=== PATIENT | female | born 1950 | race Caucasian/White ===

== ENCOUNTER 2017-04-05 15:01 | Inpatient (IN) | payer MEDICARE, BC ==
[~2017-04-05] VITALS: Ht 149.9 cm; Wt 69.0 kg
[~2017-04-05 15:01] MED LIST: AMLO10TA2 PO; BENZ-8 PO; CETI10TA16 PO; CRESTOR20 MG PO; ESOM20CA PO; FENO145T2 PO; LEVO25TA55 PO; METF500T4 PO; METR500T8 PO; MONT10TA9 PO; OLME40TA12 PO
[2017-04-05 15:23] VITALS: BP 121/70
[2017-04-05] MEDS ORDERED: ONDANSETRON PF 4 MG/2 ML VIAL. IV PRN (16:00)
[2017-04-05 16:21] LABS: BASO % 1 % (0-3); EOS % 0 % (0-3); HEMATOCRIT 34.9 % (36.0-47.0); HEMOGLOBIN 12.1 g/dL (12.0-15.5); LYMPH # 0.8 x10^3/uL (1.0-4.8); LYMPH % 10 % (24-48); MEAN CORPUSCULAR HEMOGLOBIN 31 pg (25-35); MEAN CORPUSCULAR HGB CONC 35 g/dL (31-37); MEAN CORPUSCULAR VOLUME 91 fL (79-100); MONO # 0.6 x10^3/uL (0.0-1.1); MONO % 7 % (0-9); NEUT # 6.7 x10^3uL (1.8-7.7); NEUT % 82 % (31-73); PLATELET COUNT 232 x10^3/uL (140-400); RED BLOOD COUNT 3.84 x10^6/uL (3.50-5.40); RED CELL DISTRIBUTION WIDTH 13.3 % (11.5-14.5); WHITE BLOOD COUNT 8.2 x10^3/uL (4.0-11.0)
[2017-04-05] MEDS: ACETAMINOPHEN 325 MG TABLET PO PRN (16:30)
[2017-04-05 16:46] LABS: ALBUMIN/GLOBULIN RATIO 1.3 (1.0-1.7); CALCIUM 8.7 mg/dL (8.5-10.1); CREATININE 1.1 mg/dL (0.6-1.0); GFR 49.5; POTASSIUM 4.1 mmol/L (3.5-5.1); TOTAL BILIRUBIN 0.3 mg/dL (0.2-1.0); TOTAL PROTEIN 7.2 g/dL (6.4-8.2)
--- NOTE | 2017-04-05 16:58 | RAD ---
PA and lateral chest radiographs 04/05/2017 Clinical history: Congestion and shortness of breath. PA and lateral digital radiographs of the chest were obtained. No previous studies are available for comparison. The cardiac silhouette is normal in size. The thoracic aorta is mildly tortuous. Mild left basilar subsegmental atelectasis and/ or infiltrate is noted. No pneumothorax or pleural effusion is seen. Degenerative changes are seen involving the thoracic spine. Impression: Mild left basilar subsegmental atelectasis and/or infiltrate.
[2017-04-05] MEDS: IV NORMAL SALINE 1,000ML 1,000 ML IV SCH (18:00)
[2017-04-05 18:06] LABS: INFLUENZA A PATIENT POSITIVE (NEGATIVE); INFLUENZA B PATIENT NEGATIVE (NEGATIVE)
[2017-04-05] MEDS ORDERED: ONDANSETRON ODT 4 MG TAB.RAPDIS PO PRN (18:30)
[2017-04-05] MEDS ORDERED: ESOM40CA PO (18:37)
[2017-04-05 19:31] VITALS: BP 97/55
[2017-04-05] MEDS: LACTOBACILLUS RHAMNOSUS GG 1 CAPSULE. PO SCH (21:16)
[2017-04-05] MEDS: DOXYCYCLINE HYCLATE 100 MG TABLET PO SCH (21:16)
[2017-04-05] MEDS: OSELTAMIVIR 75 MG CAPSULE PO SCH (21:17)
[2017-04-05] MEDS: cefTRIAXone IV Push 1 GM VIAL. IVP SCH (21:28)
[2017-04-05 23:03] VITALS: BP 112/58
[2017-04-05] MEDS: MONTELUKAST 10 MG TABLET. PO SCH (23:12)
[2017-04-05] MEDS: PANTOPRAZOLE 40 MG TABLET. PO SCH (23:12)
[2017-04-05] MEDS: ATORVASTATIN CALCIUM 20 MG TABLET PO SCH (23:12)
[2017-04-06] MEDS: ACETAMINOPHEN 325 MG TABLET PO PRN ×2 (04:59→20:15)
[2017-04-06] MEDS: IV NORMAL SALINE 1,000ML 1,000 ML IV SCH ×3 (05:00→22:56)
[2017-04-06 05:14] VITALS: BP 94/60
[2017-04-06] MEDS: LEVOTHYROXINE 25 MCG TABLET. PO SCH (06:16)
[2017-04-06 06:26] LABS: BASO % 1 % (0-3); EOS % 0 % (0-3); HEMATOCRIT 32.4 % (36.0-47.0); HEMOGLOBIN 11.2 g/dL (12.0-15.5); LYMPH # 1.1 x10^3/uL (1.0-4.8); LYMPH % 19 % (24-48); MEAN CORPUSCULAR HEMOGLOBIN 32 pg (25-35); MEAN CORPUSCULAR HGB CONC 35 g/dL (31-37); MEAN CORPUSCULAR VOLUME 91 fL (79-100); MONO # 0.6 x10^3/uL (0.0-1.1); MONO % 10 % (0-9); NEUT % 70 % (31-73); PLATELET COUNT 194 x10^3/uL (140-400); RED BLOOD COUNT 3.56 x10^6/uL (3.50-5.40); RED CELL DISTRIBUTION WIDTH 13.3 % (11.5-14.5); WHITE BLOOD COUNT 5.7 x10^3/uL (4.0-11.0)
[2017-04-06 06:34] LABS: GFR 55.3; POTASSIUM 3.7 mmol/L (3.5-5.1)
[2017-04-06] MEDS: OSELTAMIVIR 75 MG CAPSULE PO SCH ×2 (08:01→20:15)
[2017-04-06] MEDS: LACTOBACILLUS RHAMNOSUS GG 1 CAPSULE. PO SCH ×2 (08:01→20:16)
[2017-04-06] MEDS: DOXYCYCLINE HYCLATE 100 MG TABLET PO SCH ×2 (08:01→20:16)
[2017-04-06] MEDS: PANTOPRAZOLE 40 MG TABLET. PO SCH ×2 (08:02→20:15)
[2017-04-06] MEDS: metFORMIN 500 MG TABLET PO SCH ×2 (08:02→17:18)
[2017-04-06] MEDS: CETIRIZINE HCL 10 MG TABLET PO SCH (08:02)
[2017-04-06] MEDS: FENOFIBRATE NANOCRYSTALLIZED 145 MG TABLET PO SCH (08:03)
[2017-04-06] MEDS: amLODIPine BESYLATE 10 MG TABLET PO SCH (08:03)
[2017-04-06] MEDS ORDERED: FLU VACC QS2017-18 (36MOS+)/PF 0.5 ML SYRINGE. VAX IM ONE (09:00)
[2017-04-06 10:08] LABS: BACTERIA,URINE FEW /HPF (0-FEW); BILIRUBIN,URINE NEG (NEG); CLARITY,URINE CLEAR; COLOR,URINE YELLOW; GLUCOSE,URINE NEG (NEG); NITRITE,URINE NEG (NEG); SQUAMOUS EPITHELIAL CELL,UR OCC /LPF; UROBILINOGEN,URINE 0.2 mg/dL (0.2 mg/dL)
[2017-04-06 11:02] VITALS: BP 106/73
[2017-04-06] MEDS: PROMETH/CODEINE 6.25/10MG 5 ML SYRUP. PO PRN ×2 (12:32→22:56)
[2017-04-06 16:29] VITALS: BP 119/56
[2017-04-06 19:10] VITALS: BP 131/80
[2017-04-06] MEDS: cefTRIAXone IV Push 1 GM VIAL. IVP SCH (20:15)
[2017-04-06] MEDS: MONTELUKAST 10 MG TABLET. PO SCH (20:15)
[2017-04-06] MEDS: ATORVASTATIN CALCIUM 20 MG TABLET PO SCH (20:16)
[2017-04-06] MEDS: IPRATRPIUM/ALBUTEROL 0.5/2.5MG 3 ML NEBU. NEB SCH (20:33)
[2017-04-06 22:31] VITALS: BP 102/61
[2017-04-07 05:37] VITALS: BP 120/67
[2017-04-07] MEDS: LEVOTHYROXINE 25 MCG TABLET. PO SCH (05:58)
[2017-04-07 06:51] LABS: BASO % 1 % (0-3); EOS # 0.1 x10^3/uL (0.0-0.7); EOS % 2 % (0-3); HEMATOCRIT 30.5 % (36.0-47.0); HEMOGLOBIN 10.5 g/dL (12.0-15.5); LYMPH # 1.4 x10^3/uL (1.0-4.8); LYMPH % 52 % (24-48); MEAN CORPUSCULAR HEMOGLOBIN 32 pg (25-35); MEAN CORPUSCULAR HGB CONC 34 g/dL (31-37); MEAN CORPUSCULAR VOLUME 92 fL (79-100); MONO # 0.2 x10^3/uL (0.0-1.1); MONO % 9 % (0-9); NEUT % 37 % (31-73); PLATELET COUNT 168 x10^3/uL (140-400); RED BLOOD COUNT 3.32 x10^6/uL (3.50-5.40); RED CELL DISTRIBUTION WIDTH 13.3 % (11.5-14.5); WHITE BLOOD COUNT 2.6 x10^3/uL (4.0-11.0)
[2017-04-07 06:58] LABS: CALCIUM 7.7 mg/dL (8.5-10.1); CREATININE 0.9 mg/dL (0.6-1.0); GFR 62.5; POTASSIUM 3.5 mmol/L (3.5-5.1)
[2017-04-07 08:17] LABS: % BANDS 1 % (0-9); % EOS 3 % (0-5); % LYMPHS 45 % (24-48); % MONOS 5 % (0-10); % SEGS 44 % (35-66)
[2017-04-07 08:18] LABS: PLT ESTIMATE ADEQUATE (ADEQUATE); POLYCHROMASIA SLIGHT
[2017-04-07 08:20] LABS: % ATYL 2 % (0-0)
[2017-04-07] MEDS: IPRATRPIUM/ALBUTEROL 0.5/2.5MG 3 ML NEBU. NEB SCH ×2 (09:00→20:38)
[2017-04-07] MEDS: PANTOPRAZOLE 40 MG TABLET. PO SCH ×2 (09:21→20:15)
[2017-04-07] MEDS: LACTOBACILLUS RHAMNOSUS GG 1 CAPSULE. PO SCH ×2 (09:21→20:15)
[2017-04-07] MEDS: FENOFIBRATE NANOCRYSTALLIZED 145 MG TABLET PO SCH (09:21)
[2017-04-07] MEDS: amLODIPine BESYLATE 10 MG TABLET PO SCH (09:21)
[2017-04-07] MEDS: metFORMIN 500 MG TABLET PO SCH ×2 (09:21→17:44)
[2017-04-07] MEDS: DOXYCYCLINE HYCLATE 100 MG TABLET PO SCH ×2 (09:21→20:15)
[2017-04-07] MEDS: OSELTAMIVIR 75 MG CAPSULE PO SCH ×2 (09:21→20:15)
[2017-04-07] MEDS: CETIRIZINE HCL 10 MG TABLET PO SCH (09:21)
--- NOTE | 2017-04-07 10:52 | PN ---
DATE: 04/06/2017 SUBJECTIVE: The patient in with influenza A, doing somewhat better, but still very achy, very uncomfortable as it were. The patient rates her pain approximately about 8-9/10. OBJECTIVE: VITAL SIGNS: The patient's blood pressure 120/60, respiratory rate 20, pulse 70 so sure. Her temperature has come down from 102.8 down to approximately 98. GENERAL: The patient otherwise is alert and oriented, ill appearing. LUNGS: Diminished throughout, poor movement of air. CARDIOVASCULAR: Regular sinus rhythm. ABDOMEN: Soft and nontender. IMPRESSION: Influenza A, dehydration, and complications from influenza with generalized achiness and discomfort. ZACHARIAH STEINER MD DR: KIN/adrienne JOB#: [id number] / [id number]
[2017-04-07] MEDS: IV NORMAL SALINE 1,000ML 1,000 ML IV SCH ×2 (12:00→20:16)
[2017-04-07 15:59] VITALS: BP 119/68
[2017-04-07 19:10] VITALS: BP 119/76
[2017-04-07] MEDS: ACETAMINOPHEN 325 MG TABLET PO PRN (20:15)
[2017-04-07] MEDS: MONTELUKAST 10 MG TABLET. PO SCH (20:15)
[2017-04-07] MEDS: ATORVASTATIN CALCIUM 20 MG TABLET PO SCH (20:15)
[2017-04-07] MEDS: cefTRIAXone IV Push 1 GM VIAL. IVP SCH (20:18)
[2017-04-07 22:32] VITALS: BP 121/72
[2017-04-08] MEDS: PROMETH/CODEINE 6.25/10MG 5 ML SYRUP. PO PRN ×2 (01:00→23:00)
[2017-04-08] MEDS: IV NORMAL SALINE 1,000ML 1,000 ML IV SCH ×3 (04:19→19:18)
[2017-04-08 05:32] VITALS: BP 105/62
[2017-04-08] MEDS: LEVOTHYROXINE 25 MCG TABLET. PO SCH (07:50)
[2017-04-08] MEDS: metFORMIN 500 MG TABLET PO SCH ×2 (07:58→19:14)
[2017-04-08] MEDS: amLODIPine BESYLATE 10 MG TABLET PO SCH (07:59)
[2017-04-08] MEDS: LACTOBACILLUS RHAMNOSUS GG 1 CAPSULE. PO SCH ×2 (07:59→20:03)
[2017-04-08] MEDS: FENOFIBRATE NANOCRYSTALLIZED 145 MG TABLET PO SCH (08:00)
[2017-04-08] MEDS: DOXYCYCLINE HYCLATE 100 MG TABLET PO SCH ×2 (08:00→20:03)
[2017-04-08] MEDS: OSELTAMIVIR 75 MG CAPSULE PO SCH ×2 (08:00→20:03)
[2017-04-08] MEDS: PANTOPRAZOLE 40 MG TABLET. PO SCH ×2 (08:00→20:03)
[2017-04-08] MEDS: CETIRIZINE HCL 10 MG TABLET PO SCH (08:00)
[2017-04-08] MEDS: IPRATRPIUM/ALBUTEROL 0.5/2.5MG 3 ML NEBU. NEB SCH ×2 (11:14→20:23)
[2017-04-08] MEDS ORDERED: FLU VACC QS2017-18 (36MOS+)/PF 0.5 ML SYRINGE. VAX IM ONE (12:30)
[2017-04-08 15:03] VITALS: BP 133/75
--- NOTE | 2017-04-08 19:52 | PN ---
DATE: 04/05/2017 SUBJECTIVE: Presents with influenza A, pneumonia, and sepsis. The patient is resting comfortably, and making good progress overall. VITAL SIGNS: Patient's blood pressure 120/76, respiratory rate 74, temperature of 99, otherwise. GENERAL: The patient alert and oriented. LUNGS: Expiratory wheezes. CARDIOVASCULAR: Regular sinus rhythm. ABDOMEN: Soft, nontender. The patient with influenza A, dehydration, and abdominal pain. PLAN: As above. Continue with intravenous fluids, antibiotics for pneumonia, and make further evaluation in the a.m. ZACHARIAH STEINER MD DR: KIN/adrienne JOB#: [id number] / [id number]
[2017-04-08 19:54] VITALS: BP 117/60
[2017-04-08] MEDS: cefTRIAXone IV Push 1 GM VIAL. IVP SCH (20:02)
[2017-04-08] MEDS: MONTELUKAST 10 MG TABLET. PO SCH (20:03)
[2017-04-08] MEDS: ATORVASTATIN CALCIUM 20 MG TABLET PO SCH (20:03)
[2017-04-08 22:56] VITALS: BP 122/69
[2017-04-09] MEDS: IV NORMAL SALINE 1,000ML 1,000 ML IV SCH ×2 (05:08→17:47)
[2017-04-09] MEDS: LEVOTHYROXINE 25 MCG TABLET. PO SCH (06:07)
[2017-04-09 06:13] VITALS: BP 116/60
[2017-04-09 07:02] LABS: HEMOGLOBIN 10.9 g/dL (12.0-15.5); RED BLOOD COUNT 3.49 x10^6/uL (3.50-5.40); RED CELL DISTRIBUTION WIDTH 13.2 % (11.5-14.5); WHITE BLOOD COUNT 4.1 x10^3/uL (4.0-11.0)
[2017-04-09 07:12] LABS: CALCIUM 8.7 mg/dL (8.5-10.1); GFR 55.3; POTASSIUM 3.5 mmol/L (3.5-5.1)
--- NOTE | 2017-04-09 07:20 | PN ---
DATE: 04/08/2017 SUBJECTIVE: The patient with sepsis, influenza A pneumonia. Patient is resting comfortably, getting a little bit stronger. She is able to move around a little bit better. The patient otherwise seems to be resting comfortably. OBJECTIVE: VITAL SIGNS: Blood pressure 117/60, respiratory rate 20, pulse 70, temperature 98.9. GENERAL: The patient is alert and oriented. LUNGS: Diminished, some rales are noted, but much improved. CARDIOVASCULAR: CVR Regular sinus rhythm. ABDOMEN: Soft, nontender. No clubbing, cyanosis, or edema. NEUROLOGIC: Intact. IMPRESSION: Therefore of influenza A, dehydration, diffuse abdominal pain, sepsis. ZACHARIAH STEINER MD DR: KIN/adrienne JOB#: [id number] / [id number]
[2017-04-09] MEDS: metFORMIN 500 MG TABLET PO SCH ×2 (08:33→17:13)
[2017-04-09] MEDS: LACTOBACILLUS RHAMNOSUS GG 1 CAPSULE. PO SCH ×2 (08:34→20:30)
[2017-04-09] MEDS: amLODIPine BESYLATE 10 MG TABLET PO SCH (08:34)
[2017-04-09] MEDS: CETIRIZINE HCL 10 MG TABLET PO SCH (08:35)
[2017-04-09] MEDS: PANTOPRAZOLE 40 MG TABLET. PO SCH ×2 (08:35→20:30)
[2017-04-09] MEDS: DOXYCYCLINE HYCLATE 100 MG TABLET PO SCH ×2 (08:35→20:30)
[2017-04-09] MEDS: OSELTAMIVIR 75 MG CAPSULE PO SCH ×2 (08:35→20:30)
[2017-04-09] MEDS: FENOFIBRATE NANOCRYSTALLIZED 145 MG TABLET PO SCH (08:35)
[2017-04-09] MEDS ORDERED: PROMETH/CODEINE 6.25/10MG 5 ML SYRUP. PO PRN (09:15)
[2017-04-09] MEDS: methylPREDNISolone SOD SUCC PF 40 MG/ML VIAL. IV SCH (10:46)
[2017-04-09 11:22] VITALS: BP 119/70
[2017-04-09] MEDS: IPRATRPIUM/ALBUTEROL 0.5/2.5MG 3 ML NEBU. NEB SCH ×2 (17:14→21:34)
[2017-04-09 17:54] VITALS: BP 113/67
[2017-04-09 20:12] VITALS: BP 123/73
[2017-04-09 20:16] VITALS: BP 125/74
[2017-04-09] MEDS: MONTELUKAST 10 MG TABLET. PO SCH (20:30)
[2017-04-09] MEDS: ATORVASTATIN CALCIUM 20 MG TABLET PO SCH (20:30)
[2017-04-09] MEDS: ACETAMINOPHEN 325 MG TABLET PO PRN (20:30)
[2017-04-09] MEDS: cefTRIAXone IV Push 1 GM VIAL. IVP SCH (20:31)
[2017-04-10 00:13] VITALS: BP 105/64
[2017-04-10] MEDS: IV NORMAL SALINE 1,000ML 1,000 ML IV SCH (02:33)
--- NOTE | 2017-04-10 05:45 | PN ---
DATE: 04/09/2017 SUBJECTIVE: A 66-year-old female admitted with influenza A as well as pneumonia. The patient resting fairly comfortably, making fairly good progress overall, although feels very weak and is somewhat more debilitated than she was yesterday. OBJECTIVE: VITAL SIGNS: Blood pressure 110/70, respiratory rate 20, pulse 70, afebrile, weak appearing female, moderate amount of distress. Otherwise, the patient is alert and oriented. LUNGS: Diminished throughout, poor movement of air, but clear than they have been. CARDIOVASCULAR: Regular sinus rhythm. ABDOMEN: Soft, nontender. NEUROLOGIC: Alert and oriented, but markedly tired. IMPRESSION AND PLAN: We will go ahead and continue to monitor the patient. Type A influenza pneumonia of unspecified etiology. Continue with IV fluids, antibiotics and Tamiflu for now. ZACHARIAH STEINER MD DR: KIN/adrienne JOB#: [id number] / [id number]
[2017-04-10 05:50] VITALS: BP 96/55
[2017-04-10] MEDS: LEVOTHYROXINE 25 MCG TABLET. PO SCH (07:30)
[2017-04-10] MEDS: CETIRIZINE HCL 10 MG TABLET PO SCH (07:57)
[2017-04-10] MEDS: DOXYCYCLINE HYCLATE 100 MG TABLET PO SCH (07:57)
[2017-04-10] MEDS: LACTOBACILLUS RHAMNOSUS GG 1 CAPSULE. PO SCH (07:57)
[2017-04-10 07:59] VITALS: BP 110/56
[2017-04-10] MEDS: metFORMIN 500 MG TABLET PO SCH (07:59)
[2017-04-10] MEDS: OSELTAMIVIR 75 MG CAPSULE PO SCH (07:59)
[2017-04-10] MEDS: amLODIPine BESYLATE 10 MG TABLET PO SCH (07:59)
[2017-04-10] MEDS: PANTOPRAZOLE 40 MG TABLET. PO SCH (07:59)
[2017-04-10] MEDS ORDERED: FLU VACC QS2017-18 (36MOS+)/PF 0.5 ML SYRINGE. VAX IM ONE (09:00)
[2017-04-10] MEDS ORDERED: PROM118S2 PO (09:04)
[2017-04-10] MEDS ORDERED: METH4TAB2 PO (09:04)
[2017-04-10] MEDS: methylPREDNISolone SOD SUCC PF 40 MG/ML VIAL. IV SCH (09:17)
--- NOTE | 2017-04-10 20:26 | DS ---
DATE OF DISCHARGE: 04/10/2017 HOSPITAL COURSE: The patient came in with generalized weakness, fever, chills, and coughing. She had influenza A, H1N1, and pneumonia was noted also on her x-ray. The patient waxed and waned for some time with generalized weakness, dehydration and alike. The patient made excellent progress. Her hemoglobin did drop down to 10.9 and ____ 32. The patient had atypical lymphs as well as increase in lymphocytes. The patient's blood sugar shows she is diabetic. It is in the 120s. Urine was negative. Serology as indicated. Otherwise, the patient after struggling with IV fluid, IV antibiotic therapy, physical and occupational therapy, the patient made good progress and was discharged home for followup. She refused home health. PLAN: See CRISTIN. Decreased activity. She will follow up in the office for 7-10 days or sooner as needed. ZACHARIAH STEINER MD DR: KIN/adrienne JOB#: [id number] / [id number]
== END 2017-04-10 10:45 | disposition home or self-care (01) | DRG 871 ==
LOC: 1 SOUTH 15:14
PROVIDERS: ADMIT Family Medicine; ATTEND Family Medicine
DX: A41.9 Sepsis, unspecified organism (principal); J10.00 Influenza due to other identified influenza virus with unspecified type of pneumonia; E86.0 Dehydration; E11.9 Type 2 diabetes mellitus without complications
CPT/HCPCS: 36415; 71046; 80048; 80053; 81001; 82947; 83605; 85007; 85025; 85027; 87086; 87804; 90686; 94640; J0696; J2920; J7620; J7030

== ENCOUNTER → 2019-06-08 | Outpatient (CLI) | payer BC ==
[~2019-06-08] MED LIST changes: -AMLO10TA2 PO; +AMLO10TA8 PO; +ESOM40CA PO; -FENO145T2 PO; +FENO145T3 PO; +METF500T16 PO; -METF500T4 PO; +METH4TAB2 PO; +METR-34 PO; -METR500T8 PO; +MONT10TA80 PO; -MONT10TA9 PO; +PROM118S5 PO
--- NOTE | 2019-06-08 15:53 | RAD ---
INDICATION: Hypoxemia and fever with cough COMPARISON: March 2017 FINDINGS: 2 view of chest obtained. No definite focal airspace consolidation or pulmonary edema. Degenerative changes of the spine. Cardiac silhouette is unremarkable. IMPRESSION: * No focal airspace consolidation or edema. Electronically signed by: Juan J Guerrero MD (06/08/2019 3:49 PM) [id number]
[2019-06-08 16:03] LABS: BASO % 0 % (0-3); EOS # 0.1 x10^3/uL (0.0-0.7); EOS % 2 % (0-3); HEMATOCRIT 41.1 % (36.0-47.0); HEMOGLOBIN 13.8 g/dL (12.0-15.5); LYMPH # 1.6 x10^3/uL (1.0-4.8); LYMPH % 35 % (24-48); MEAN CORPUSCULAR HEMOGLOBIN 31 pg (25-35); MEAN CORPUSCULAR HGB CONC 34 g/dL (31-37); MEAN CORPUSCULAR VOLUME 92 fL (79-100); MONO # 0.3 x10^3/uL (0.0-1.1); MONO % 8 % (0-9); NEUT # 2.4 x10^3uL (1.8-7.7); NEUT % 55 % (31-73); PLATELET COUNT 301 x10^3/uL (140-400); RED BLOOD COUNT 4.47 x10^6/uL (3.50-5.40); RED CELL DISTRIBUTION WIDTH 13.5 % (11.5-14.5); WHITE BLOOD COUNT 4.4 x10^3/uL (4.0-11.0)
[2019-06-08 16:08] LABS: ALBUMIN 4.3 g/dL (3.4-5.0); ALBUMIN/GLOBULIN RATIO 1.4 (1.0-1.7); CALCIUM 8.9 mg/dL (8.5-10.1); GFR 54.8; POTASSIUM 3.9 mmol/L (3.5-5.1); TOTAL BILIRUBIN 0.4 mg/dL (0.2-1.0); TOTAL PROTEIN 7.4 g/dL (6.4-8.2)
== END ==
LOC: RAD 15:10
PROVIDERS: ATTEND Family Medicine
DX: R09.02 Hypoxemia (principal); J18.8 Other pneumonia, unspecified organism
CPT/HCPCS: 36415; 71046; 80053; 84145; 85025

== ENCOUNTER 2021-03-17 22:13 | Emergency (ER) | payer MEDICARE, BC ==
[~2021-03-17] VITALS: Ht 149.9 cm; Wt 66.2 kg
[~2021-03-17 22:13] MED LIST changes: +AMLO-187 PO; -AMLO10TA8 PO
--- NOTE | 2021-03-17 22:41 | PHYS DOC ---
Past History Past Medical History: Bronchitis Past Medical History Mnire's disease General Adult EDM: Chief Complaint: COUGH HPI: HPI: ".. I ve been running a fever.. coughing .. been sick the last four day s.. I did nt get the COVID shot.. because I have Mnire's disease... And I did not know how the shot would affect my experimental treatment of laser therapy by my chiropractor to my ears.... Patient is a 70 year old female who presents with increased nonproductive cough, malaise, arthralgia, myalgia, fever and chills. Patient does have yearly bouts of bronchitis. Patient has not gotten Covid vaccination. Patient has not gotten flu vaccination. Patient has not gotten Pneumovax. Patient normally follows with Dr. Steiner and her chiropractor for care. Patient reports a temp today was 102 at home. Did take 1 tablet of Tylenol. No recent travel. No severe ill contacts. 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 Review of Systems: Review of Systems: Constitutional: Complains of fever and chills Eyes: Denies change in visual acuity HENT: Complains of nasal congestion and sore throat Respiratory: Complains of cough and shortness of breath Cardiovascular: Denies chest pain or edema GI: Denies abdominal pain, nausea, vomiting, bloody stools or diarrhea : Denies dysuria Musculoskeletal: Complains of generalized myalgia and arthralgia Integument: Denies rash Neurologic: Denies headache, focal weakness or sensory changes Endocrine: Denies polyuria or polydipsia Lymphatic: Denies swollen glands Psychiatric: Denies depression or anxiety Family History: Family History: Noncontributory to presentation Current Medications: Current Meds: See nursing for home meds Allergies: Allergies: Allergies Coded Allergies Type Severity Reaction Last Updated Verified Sulfa (Sulfonamide Antibiotics) Allergy Intermediate 04/17/16 Yes Physical Exam: PE: Constitutional: Moderate acute distress, non-toxic appearance. [] HENT: Normocephalic, atraumatic, bilateral external ears normal, oropharynx moist, no oral exudates, nose swollen turbinates clear rhinorrhea [] Eyes: PERRLA, EOMI, conjunctiva normal, no discharge. Glasses Neck: Normal range of motion, no tenderness, supple, no stridor. [] Cardiovascular: Tachycardia heart rate regular rhythm, no murmur [] Lungs & Thorax: Bilateral breath sounds equal apex with scattered wheezes on auscultation [] Abdomen: Bowel sounds normal, soft, no tenderness, no masses, no pulsatile masses. [] Skin: Warm, dry, no erythema, no rash. [] Back: No tenderness, no CVA tenderness. [] Extremities: No tenderness, no cyanosis, no clubbing, ROM intact, no edema. [] Neurologic: Alert and oriented X 3, normal motor function, normal sensory function, no focal deficits noted. [] Psychologic: Affect anxious, judgement normal, mood normal. [] EKG: EKG: My interpretation EKG shows a sinus rhythm at 85 bpm. No acute morphology. Time of EKG is 2251 hrs. [] Radiology/Procedures: Radiology/Procedures: [][address] [address] IMAGING REPORT Signed PATIENT: XIOMARA MONTEZ ACCOUNT: [id number] : 1950 LOCATION: ER AGE: 70 SEX: F EXAM STATUS: REG ER ORD. PHYSICIAN: LIZZIE SOTO MD REASON: dyspnea, cough PROCEDURE: PORTABLE CHEST 1V EXAM: CHEST ONE VIEW. HISTORY: Dyspnea, cough. COMPARISON: 06/08/2019. FINDINGS: A frontal view of the chest is obtained. There are no confluent infiltrates. Refer to today's CT for more formation. There is no pneumothorax or pleural effusion. The heart is not enlarged. IMPRESSION: 1. No confluent infiltrates by radiographs. Refer to today's CT for more information. Electronically signed by: Sagar Tilley MD (03/18/2021 2:02 AM) [facility] DICTATED AND SIGNED BY: TERRY TILLEY MD DATE: 03/18/21201 CC: ZACHARIAH STEINER MD; LIZZIE SOTO MD ~MTH0 [address] [place] [address] [id number] IMAGING REPORT Signed PATIENT: XIOMARA MONTEZ ACCOUNT: [id number] : 1950 LOCATION: ER AGE: 70 SEX: F EXAM STATUS: REG ER ORD. PHYSICIAN: LIZZIE SOTO MD REASON: OMNI 350,85ML IV.COVID +,dyspnea,elevated D-dimer PROCEDURE: CT ANGIOGRAPHY CHEST EXAM: CT ANGIOGRAPHY OF THE CHEST WITH AND WITHOUT CONTRAST. HISTORY: Elevated d-dimer, dyspnea, COVID-19. TECHNIQUE: Computed tomographic angiography of the chest was performed before and after the intravenous administration of iodinated contrast. 3-D maximum intensity projections were also performed. One or more of the following individualized dose reduction techniques were utilized for this examination: 1. Automated exposure control. 2. Adjustment of the mA and/or kV according to patient size. 3. Use of iterative reconstruction technique. COMPARISON: None. FINDINGS: Images of the upper abdomen reveal at least moderate diffuse hepatic steatosis. Gallstones are noted. Calcifications are noted bilaterally in the adrenal glands. Bone windows reveal no suspicious lesions. No pulmonary emboli are identified. There is no aortic dissection or aneurysm. There are no pathologically enlarged mediastinal or axillary lymph nodes. Calcified mediastinal lymph nodes are likely secondary to old granulomatous disease. There is no pleural or pericardial effusion. The heart is not enlarged. There are minimal groundglass infiltrates within the lower lobes and posteriorly in the upper lobes as seen on image 32 and 42. An uncalcified nodule in the right lower lobe on image 79 measures 5 mm. There is mild dependent atelectasis or scarring. IMPRESSION: 1. No pulmonary embolism. 2. Minimal groundglass infiltrates may reflect atelectasis or atypical pneumonia. 3. A few scattered pulmonary nodules measure <6 mm and are most likely benign. Follow-up could be considered in one year only if there are strong risk factors. 4. Diffuse hepatic steatosis. 5. Cholelithiasis. 6. Bilateral adrenal calcifications may reflect remote hemorrhage or granulomatous inflammation. Correlate to exclude renal insufficiency. Electronically signed by: Sagar Tilley MD (03/18/2021 2:02 AM) [facility] DICTATED AND SIGNED BY: TERRY TILLEY MD DATE: 03/18/21 0158 CC: ZACHARIAH STEINER MD; LIZZIE SOTO MD ~MTH0 0 Heart Score: C/O Chest Pain: N/A HEART Score for Chest Pain: HEART Score for Chest Pain Response (Comments) Value History Slighlty/Non-Suspicious 0 ECG Normal 0 Age > 65 2 Risk Factors 1 or 2 Risk Factors 1 Troponin < Normal Limit 0 Total 3 Risk Factors: Risk Factors: DM, Current or recent (<one month) smoker, HTN, HLP, family history of CAD, obesity. Risk Scores: Score 0 - 3: 2.5% MACE over next 6 weeks - Discharge Home Score 4 - 6: 20.3% MACE over next 6 weeks - Admit for Clinical Observation Score 7 - 10: 72.7% MACE over next 6 weeks - Early Invasive Strategies Course & Med Decision Making: Course & Med Decision Making Pertinent Labs and Imaging studies reviewed. (See chart for details) Get a stat monitor measure your saturations at home. Practice deep breaths. Do incentive spirometry or get a package of balloons and blow them up every hour. Follow-up primary care. Use MDI 2 puffs 4 times a day. Take Tylenol and ibuprofen as needed for discomfort. Take Zithromax 250 a day for the next 5 days. Take Eliquis 10 mg twice a day. Follow-up primary care. Return if any concerns. Get a sat monitor to monitor your oxygenation at home. If you have persistent below 90% oxygen saturation you will need home oxygen. Impression: 1. Bronchitis 2. Fever 3. History of Mnire's disease 4. Elevated D-dimer 0.57 5. Gallstones 6. COVID-19 positive test (U07.1, COVID-19) with Acute Pneumonia (J12.89, Other viral pneumonia) (If respiratory failure or sepsis present, add as separate assessment) 7. Elevated Lipase 805 [] Dragon Disclaimer: Dragon Disclaimer: This electronic medical record was generated, in whole or in part, using a voice recognition dictation system. Departure Departure: Referrals: ZACHARIAH STEINER MD (PCP) Scripts Apixaban (ELIQUIS) 5 Mg Tablet 10 MG PO BID for COVID for 7 Days, #28 TAB Prov: LIZZIE SOTO MD 03/18/21 Azithromycin (ZITHROMAX) 250 Mg Tablet 250 MG PO DAILY for ANTI-BIOTIC for 5 Days, #5 TAB 0 Refills Prov: LIZZIE STOO MD 03/18/21 Dick Disclaimer This chart was dictated in whole or in part using Voice Recognition software in a busy, high-work load, and often noisy Emergency Department environment. It may contain unintended and wholly unrecognized errors or omissions. LIZZIE SOTO MD Mar 17, 2021 22:41
[2021-03-17] MEDS ORDERED: IV RINGERS SOLUTION,LACTATED 1,000 ML IV SCH (22:45)
[2021-03-17] MEDS ORDERED: ALBUTEROL SULFATE 8GM INHALER. INH ONE (22:45)
[2021-03-17] MEDS ORDERED: AZITHROMYCIN 250 MG TABLET. PO ONE (22:45)
[2021-03-17] MEDS ORDERED: IBUPROFEN 600 MG TABLET. PO ONE (22:45)
[2021-03-17] MEDS ORDERED: ACETAMINOPHEN 500 MG TABLET PO ONE (22:45)
[2021-03-17] MEDS ORDERED: IV NORMAL SALINE 50ML 50 ML ONE (23:06)
[2021-03-17] MEDS ORDERED: cefTRIAXone SODIUM 1 GM VIAL ONE (23:06)
[2021-03-17 23:34] LABS: BASO # 0.1 x10^3/uL (0.0-0.2); BASO % 1 % (0-3); EOS # 0.1 x10^3/uL (0.0-0.7); EOS % 1 % (0-3); HEMATOCRIT 37.9 % (36.0-47.0); HEMOGLOBIN 12.9 g/dL (12.0-15.5); LYMPH # 0.9 x10^3/uL (1.0-4.8); LYMPH % 16 % (24-48); MEAN CORPUSCULAR HEMOGLOBIN 32 pg (25-35); MEAN CORPUSCULAR HGB CONC 34 g/dL (31-37); MEAN CORPUSCULAR VOLUME 94 fL (79-100); MONO # 0.4 x10^3/uL (0.0-1.1); MONO % 7 % (0-9); NEUT # 4.4 x10^3uL (1.8-7.7); NEUT % 75 % (31-73); PLATELET COUNT 224 x10^3/uL (140-400); RED BLOOD COUNT 4.04 x10^6/uL (3.50-5.40); RED CELL DISTRIBUTION WIDTH 12.8 % (11.5-14.5); WHITE BLOOD COUNT 5.9 x10^3/uL (4.0-11.0)
[2021-03-17 23:44] LABS: CALCIUM 8.9 mg/dL (8.5-10.1); GFR 54.7; POTASSIUM 3.8 mmol/L (3.5-5.1)
[2021-03-17 23:46] LABS: INFLUENZA A PATIENT NEGATIVE (NEGATIVE); INFLUENZA B PATIENT NEGATIVE (NEGATIVE)
[2021-03-17 23:59] LABS: ALBUMIN 4.1 g/dL (3.4-5.0); DIRECT BILIRUBIN 0.1 mg/dL (0.0-0.2); MAGNESIUM 2.1 mg/dL (1.8-2.4); TOTAL BILIRUBIN 0.2 mg/dL (0.2-1.0); TOTAL PROTEIN 7.1 g/dL (6.4-8.2)
[2021-03-18] MEDS ORDERED: IOHEXOL 350 MG/ML 100 ML VIAL. IV ONE (00:30)
[2021-03-18] MEDS ORDERED: CONTRAST GIVEN. MC PRN (00:30)
[2021-03-18] MEDS ORDERED: APIXABAN 5 MG TABLET. PO SCH (01:00)
--- NOTE | 2021-03-18 02:04 | RAD ---
EXAM: CHEST ONE VIEW. HISTORY: Dyspnea, cough. COMPARISON: 06/08/2019. FINDINGS: A frontal view of the chest is obtained. There are no confluent infiltrates. Refer to today's CT for more formation. There is no pneumothorax or pleural effusion. The heart is not enlarged. IMPRESSION: 1. No confluent infiltrates by radiographs. Refer to today's CT for more information. Electronically signed by: Sagar Tilley MD (03/18/2021 2:02 AM) [facility]
--- NOTE | 2021-03-18 02:04 | RAD ---
EXAM: CT ANGIOGRAPHY OF THE CHEST WITH AND WITHOUT CONTRAST. HISTORY: Elevated d-dimer, dyspnea, COVID-19. TECHNIQUE: Computed tomographic angiography of the chest was performed before and after the intraveno us administration of iodinated contrast. 3-D maximum intensity projections were also performed. One o r more of the following individualized dose reduction techniques were utilized for this examination: 1. Automated exposure control. 2. Adjustment of the mA and/or kV according to patient size. 3. Use of iterative reconstruction technique. COMPARISON: None. FINDINGS: Images of the upper abdomen reveal at least moderate diffuse hepatic steatosis. Gallstones are noted. Calcifications are noted bilaterally in the adrenal glands. Bone windows reveal no suspici ous lesions. No pulmonary emboli are identified. There is no aortic dissection or aneurysm. There are no pathologically enlarged mediastinal or axillary lymph nodes. Calcified mediastinal lymph nodes are likely secondary to old granulomatous disease. There is no pleural or pericardial effusion . The heart is not enlarged. There are minimal groundglass infiltrates within the lower lobes and posteriorly in the upper lobes a s seen on image 32 and 42. An uncalcified nodule in the right lower lobe on image 79 measures 5 mm. T here is mild dependent atelectasis or scarring. IMPRESSION: 1. No pulmonary embolism. 2. Minimal groundglass infiltrates may reflect atelectasis or atypical pneumonia. 3. A few scattered pulmonary nodules measure <6 mm and are most likely benign. Follow-up could be con sidered in one year only if there are strong risk factors. 4. Diffuse hepatic steatosis. 5. Cholelithiasis. 6. Bilateral adrenal calcifications may reflect remote hemorrhage or granulomatous inflammation. Tram elate to exclude renal insufficiency. Electronically signed by: Sagar Tilley MD (03/18/2021 2:02 AM) [facility]
[2021-03-18 02:17] LABS: BARBITURATES NEG (NEG); BENZODIAZEPINES NEG (NEG); CANNABINOIDS NEG (NEG); COCAINE NEG (NEG); METHADONE NEG (NEG); OPIATES NEG (NEG); PHENCYCLIDINE NEG (NEG)
[2021-03-18 02:24] LABS: BACTERIA,URINE 0 /HPF (0-FEW); BILIRUBIN,URINE NEG (NEG); CLARITY,URINE CLEAR; COLOR,URINE YELLOW; GLUCOSE,URINE NEG (NEG); NITRITE,URINE NEG (NEG); SQUAMOUS EPITHELIAL CELL,UR OCC /LPF; UROBILINOGEN,URINE 0.2 mg/dL (0.2 mg/dL); WBC,URINE OCC /HPF (0-4)
[2021-03-18 02:36] LABS: AMPHETAMINE/METHAMPHETAMINE NEG (NEG)
[2021-03-18] MEDS ORDERED: AZIT250T PO (02:59)
[2021-03-18] MEDS ORDERED: APIX5TAB3 PO (02:59)
[2021-03-18 03:16] VITALS: BP 105/55
--- NOTE | 2021-03-18 07:04 | EKG ---
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
[2021-03-24] MEDS ORDERED: APIXABAN 5 MG TABLET. PO SCH (21:00)
== END 2021-03-18 03:15 | disposition home or self-care (01) ==
LOC: ER 22:13
DX: U07.1 COVID-19 (principal); J12.82 Pneumonia due to coronavirus disease 2019; R79.1 Abnormal coagulation profile; K80.20 Calculus of gallbladder without cholecystitis without obstruction; R74.8 Abnormal levels of other serum enzymes; J40 Bronchitis, not specified as acute or chronic; Z88.2 Allergy status to sulfonamides
CPT/HCPCS: 36415; 71045; 71275; 80048; 80076; 80307; 81001; 82550; 83605; 83690; 83735; 83880; 84443; 84484; 85025; 85379; 85610; 85730; 87040; 87426; 87804; 93005; 94640; 96361; 96365; 99285; C9803; J0696; J7120; Q9967; U0003; 94664

== ENCOUNTER 2021-03-24 13:41 | Emergency (ER) | payer MEDICARE, BC ==
[~2021-03-24] VITALS: Ht 149.9 cm; Wt 64.3 kg
[~2021-03-24 13:41] MED LIST changes: +APIX5TAB3 PO; +AZIT250T PO
[2021-03-24] MEDS ORDERED: DEXAMETHASONE SOD PHOS 10 MG/ML VIAL. IVP ONE (14:45)
[2021-03-24] MEDS ORDERED: IV NORMAL SALINE 1,000ML 1,000 ML IV ONE (14:45)
--- NOTE | 2021-03-24 14:53 | PHYS DOC ---
Past History Past Medical History: Bronchitis Additional Past Medical Histor: MINEARS DISEASE (JOSE ALFREDO DO) Past Surgical History: Hysterectomy, Oophorectomy (JOSE ALFREDO DO) Alcohol Use: None (JOSE ALFREDO DO) General Adult EDM: Chief Complaint: COUGH HPI: HPI: 70-year-old female presents with shortness of breath and hemoptysis. She is 8 days positive COVID-19. She feels her shortness of breath is getting worse. She also had some blood-tinged sputum when she coughs. Patient feels generally unwell. On arrival she had a fever and oxygen saturation in the 70s. (JOSE ALFREDO DO) Review of Systems: Review of Systems: Constitutional: Fever Eyes: Denies change in visual acuity HENT: Denies nasal congestion or sore throat Respiratory: Cough with shortness of breath Cardiovascular: Denies chest pain or edema GI: Denies abdominal pain, nausea, vomiting, bloody stools or diarrhea : Denies dysuria Musculoskeletal: Denies back pain or joint pain Integument: Denies rash Neurologic: Denies headache, focal weakness or sensory changes Endocrine: Denies polyuria or polydipsia Lymphatic: Denies swollen glands Psychiatric: Denies depression or anxiety (JOSE ALFREDO DO) Current Medications: Current Meds: Current Medications Medications (Trade) Dose Ordered Sig/Carmen Start Time Stop Time Status Last Admin Dose Admin Azithromycin (Zithromax) 500 mg 1X ONCE 03/24/21 15:00 03/24/21 15:01 UNV Ceftriaxone Sodium 1 gm/ Sodium Chloride 50 ml @ 100 mls/hr 1X ONCE 03/24/21 15:00 03/24/21 15:29 UNV Dexamethasone Sodium Phosphate (Decadron) 10 mg 1X ONCE 03/24/21 14:45 03/24/21 14:46 UNV Sodium Chloride 1,000 ml @ 1,000 mls/hr 1X ONCE 03/24/21 14:45 03/24/21 15:44 UNV (JOSE ALFREDO DO) Allergies: Allergies: Allergies Coded Allergies Type Severity Reaction Last Updated Verified Sulfa (Sulfonamide Antibiotics) Allergy Intermediate 03/24/21 Yes (JOSE ALFREDO DO) Physical Exam: PE: Constitutional: Well developed, well nourished, no acute distress. [] HENT: Normocephalic, atraumatic, bilateral external ears normal, oropharynx moist, no oral exudates, nose normal. [] Eyes: PERRLA, EOMI, conjunctiva normal, no discharge. [] Neck: Normal range of motion, no tenderness, supple, no stridor. [] Cardiovascular: Heart rate regular rhythm, no murmur [] Lungs & Thorax: Bilateral breath sounds diminished but clear to auscultation [] Abdomen: Bowel sounds normal, soft, no tenderness, no masses, no pulsatile masses. [] Skin: Warm, dry, no erythema, no rash. [] Back: No tenderness, no CVA tenderness. [] Extremities: No tenderness, no cyanosis, no clubbing, ROM intact, no edema. [] Neurologic: Alert and oriented X 3, normal motor function, normal sensory function, no focal deficits noted. [] Psychologic: Affect normal, judgement normal, mood normal. [] (JOSE ALFREDO DO) Current Patient Data: Vital Signs: Vital Signs Date Time Temp Pulse Resp B/P (MAP) Pulse Ox O2 Delivery O2 Flow Rate FiO2 03/24/21 14:30 73 26 93 Nasal Cannula 4.0 03/24/21 14:21 100.3 140/69 (92) (JOSE ALFREDO DO) EKG: EKG: [] (JOSE ALFREDO DO) Radiology/Procedures: Radiology/Procedures: [] (JOSE ALFREDO DO) Heart Score: C/O Chest Pain: N/A Risk Factors: Risk Factors: DM, Current or recent (<one month) smoker, HTN, HLP, family history of CAD, obesity. Risk Scores: Score 0 - 3: 2.5% MACE over next 6 weeks - Discharge Home Score 4 - 6: 20.3% MACE over next 6 weeks - Admit for Clinical Observation Score 7 - 10: 72.7% MACE over next 6 weeks - Early Invasive Strategies (JOSE ALFREDO DO) Course & Med Decision Making: Course & Med Decision Making Pertinent Labs and Imaging studies reviewed. (See chart for details) The patient's labs are unremarkable. Her CT angiogram does not show pulmonary embolus but does show significant bilateral pneumonia. We will admit her to the hospital. She is on supplemental oxygen at this time. I spoke with Dr. Lara and he has accepted the patient for admission. [] (JOSE ALFREDO DO) Course & Med Decision Making Patient care handed off to me at checkout. Patient been in the emergency department greater than 24 hours with pneumonia secondary to Covid on CPAP. Patient alert and oriented in no acute distress, current vital signs at 63 heart rate, 120/63 on CPAP at 12 of PEEP, satting 95%. Bed finally acquired at [facility]. Discussed findings with patient who agreed to plan of transfer and admission. (ISAAC CROSS MD) Dragon Disclaimer: Dragon Disclaimer: This electronic medical record was generated, in whole or in part, using a voice recognition dictation system. (JOSE ALFREDO DO) Departure Departure: Impression: Primary Impression: Pneumonia due to COVID-19 virus Disposition: ADMITTED INPATIENT Admitting Physician: Zachariah Lara (JOSE ALFREDO DO) Condition: GUARDED Referrals: ZACHARIAH LARA MD (PCP) JOSE ALFREDO DO Mar 24, 2021 14:52 ISAAC CROSS MD Mar 25, 2021 04:54
[2021-03-24] MEDS ORDERED: AZITHROMYCIN 250 MG TABLET. PO ONE (15:00)
[2021-03-24] MEDS ORDERED: IOHEXOL 350 MG/ML 100 ML VIAL. IV ONE ×2 (15:00→15:15)
--- NOTE | 2021-03-24 15:14 | EKG ---
[address] [address] Test Date: 2021-03-24 Test Time: 15:05:25 Pat Name: XIOMARA MONTEZ Department: Room: Gender: F Center Manager: IVY : 1950 Requested By: JOSE ALFREDO Order Number: [id number] Reading MD: Gilbert Vernon Measurements Intervals [place] Rate: 75 P: 24 CA: 124 QRS: 3 QRSD: 68 T: 7 QT: 382 QTc: 429 Interpretive Statements SINUS RHYTHM Electronically Signed On 03-26-2021 10:23:10 MOISTURE MACHINE TENDER by Gilbert Vernon
[2021-03-24] MEDS ORDERED: IV NORMAL SALINE 50ML 50 ML ONE (15:15)
[2021-03-24] MEDS ORDERED: cefTRIAXone SODIUM 1 GM VIAL ONE (15:16)
--- NOTE | 2021-03-24 15:37 | RAD ---
EXAM: AP View of the chest DATE: 03/24/2021 2:34 PM INDICATION: Reason: COVID-19 / Spl. Instructions: / History: COMPARISON: 03/17/2021 FINDINGS: The heart is not enlarged. Aorta is tortuous. Bilateral perihilar and lung base airspace opacities likely consolidative process such as pneumonia. No pleural effusion or pneumothorax. IMPRESSION: Bilateral perihilar and lung base airspace opacities likely consolidative process such as pneumonia. This is new compared to 03/17/2021. Electronically signed by: Ayaz Hurtado MD (03/24/2021 3:34 PM) [facility]
[2021-03-24] MEDS ORDERED: ONDANSETRON PF 4 MG/2 ML VIAL. IVP PRN (16:00)
[2021-03-24] MEDS ORDERED: ACETAMINOPHEN 325 MG TABLET PO PRN (16:00)
--- NOTE | 2021-03-24 16:03 | RAD ---
EXAMINATION: CTA CHEST CLINICAL HISTORY: COVID-19+, SOB Technique: Spiral CT acquisition of the chest from the thoracic inlet to the upper abdomen following IV contrast with coronal and sagittal reformatted images also provided for review. 3D maximum intensi ty projection images also performed. Artificial intelligence software analysis also performed cuco Rojas. CT Dose Reduction Employed: One or more of the following individualized dose reduction techniques wer e utilized for this examination: 1. Automated exposure control 2. Adjustment of the mA and/or kV ac cording to patient size 3. Use of iterative reconstruction technique. COMPARISON: Chest radiograph same day, CTA chest 03/18/2021 FINDINGS: Pulmonary Vasculature: No evidence of main, lobar, or definite segmental pulmonary arterial thrombus. Lung Parenchyma, Pleura, and Airways: Moderate to marked multifocal patchy opacities and groundglass throughout the bilateral lungs, significantly increased from prior study. Redemonstration small pulmo nary nodule in the right lower lobe. No pleural effusion. Central airways patent. Lower Neck, Lymph Nodes, and Mediastinum: Visualized thyroid gland within normal limits. No mediastin al, hilar, or axillary lymphadenopathy. 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 Heart, Pericardium, and Thoracic Vessels: Stable heart size. No pericardial effusion. Mild aortic ath erosclerotic calcification without aneurysm.. Coronary atherosclerotic calcification, incompletely ev aluated.. Bones and Soft Tissues: No evidence of acute osseous abnormality. Upper Abdomen: Unchanged. IMPRESSION: No evidence of main, lobar, or definite segmental pulmonary embolism. Worsening bilateral multifocal patchy airspace disease, compatible with viral pneumonia. Electronically signed by: Kel Roth DO (03/24/2021 4:00 PM) [id number]
[2021-03-24 16:05] LABS: ANION GAP 13 (6-14); CARBON DIOXIDE 22 mmol/L (21-32); CHLORIDE 97 mmol/L (98-107); POTASSIUM 4.4 mmol/L (3.5-5.1); SODIUM 132 mmol/L (136-145)
[2021-03-24 16:06] LABS: BASO % 0 % (0-3); EOS % 0 % (0-3); HEMATOCRIT 38.7 % (36.0-47.0); HEMOGLOBIN 13.2 g/dL (12.0-15.5); LYMPH # 0.7 x10^3/uL (1.0-4.8); LYMPH % 15 % (24-48); MEAN CORPUSCULAR HEMOGLOBIN 31 pg (25-35); MEAN CORPUSCULAR HGB CONC 34 g/dL (31-37); MEAN CORPUSCULAR VOLUME 92 fL (79-100); MONO # 0.2 x10^3/uL (0.0-1.1); MONO % 5 % (0-9); NEUT # 3.5 x10^3uL (1.8-7.7); NEUT % 80 % (31-73); PLATELET COUNT 240 x10^3/uL (140-400); RED BLOOD COUNT 4.23 x10^6/uL (3.50-5.40); RED CELL DISTRIBUTION WIDTH 12.8 % (11.5-14.5); WHITE BLOOD COUNT 4.4 x10^3/uL (4.0-11.0)
[2021-03-24 16:47] LABS: CALCIUM 8.3 mg/dL (8.5-10.1); CREATININE 0.7 mg/dL (0.6-1.0); GFR 82.5
[2021-03-24 17:53] LABS: BLOOD UREA NITROGEN 16 mg/dL (7-20); BUN/CREATININE RATIO 23 (6-20); GLUCOSE 107 mg/dL (70-99)
[2021-03-24] MEDS ORDERED: PROMETH/CODEINE 6.25/10MG 5 ML SYRUP. PO PRN (20:15)
[2021-03-24] MEDS ORDERED: ATORVASTATIN CALCIUM 20 MG TABLET PO SCH (21:00)
[2021-03-24] MEDS ORDERED: MONTELUKAST 10 MG TABLET. PO SCH (21:00)
[2021-03-24] MEDS ORDERED: ENOXAPARIN 40 MG/0.4 ML SYRINGE. SQ SCH (21:00)
[2021-03-24] MEDS ORDERED: FAMOTIDINE 20 MG TABLET PO SCH (21:00)
[2021-03-24] MEDS ORDERED: DEXAMETHASONE SOD PHOS 10 MG/ML VIAL. ONE (21:10)
[2021-03-25] MEDS ORDERED: DEXAMETHASONE SOD PHOS 10 MG/ML VIAL. IVP SCH
[2021-03-25 04:29] VITALS: BP 135/69
[2021-03-25] MEDS ORDERED: PANTOPRAZOLE 40 MG TABLET. PO SCH (07:30)
[2021-03-25] MEDS ORDERED: metFORMIN 500 MG TABLET PO SCH (08:00)
[2021-03-25] MEDS ORDERED: FENOFIBRATE NANOCRYSTALLIZED 145 MG TABLET PO SCH (09:00)
[2021-03-25] MEDS ORDERED: amLODIPine BESYLATE 10 MG TABLET PO SCH (09:00)
[2021-03-25] MEDS ORDERED: AZITHROMYCIN 250 MG TABLET. PO SCH (09:00)
[2021-03-25] MEDS ORDERED: LOSARTAN 50 MG TABLET. PO SCH (09:00)
== END 2021-03-25 05:40 | disposition short-term general hospital (02) ==
LOC: ER 13:47 → ER HOLD 16:00 → UNDOADMIN 16:00 → ER HOLD 18:05 → 1 SOUTH 18:05 → ER 03-25 05:40
DX: U07.1 COVID-19 (principal); J12.82 Pneumonia due to coronavirus disease 2019; Z88.2 Allergy status to sulfonamides
CPT/HCPCS: 36415; 71045; 71275; 80053; 83605; 84484; 85025; 87040; 93005; 94660; 96361; 96365; 96372; 96375; 96376; 99285; J0696; J1100; J1650; J7030; Q9967